=== PATIENT | female | born 1955 | race Caucasian/White ===

== ENCOUNTER → 2018-04-22 12:48 | Outpatient (CLI) | payer OTHER, SELFPAY ==
--- NOTE | 2018-04-22 | DI.MG.S_ITS ---
BILATERAL DIGITAL SCREENING MAMMOGRAM 3D/2D WITH CAD: 04/22/2018 Comparison is made to exams dated: 01/08/2017 mammogram, 01/03/2016 mammogram, 07/27/2014 mammogram, and 05/26/2013 mammogram - [facility]. There are scattered fibroglandular elements in both breasts. Current study was also evaluated with a Computer Aided Detection (CAD) system. No significant masses, calcifications, or other findings are seen in either breast. There has been no significant interval change. IMPRESSION: NEGATIVE There is no mammographic evidence of malignancy. A 1 year screening mammogram is recommended.(04/23/2019) This exam was interpreted at Station ID: [id number]. NOTE: For mammograms, a report in lay terms will be sent to the patient. Approximately 15% of breast malignancies will not be visualized mammographically. In the management of a palpable breast mass, a negative mammogram must not discourage biopsy of a clinically suspicious lesion. Electronically Signed By: Devika lockhart/jailene:04/24/2018 11:48:24 letter sent: Normal Exam ACR BI-RADS Category 1: Negative 3341F
== END ==
PROVIDERS: PCP Family Medicine Geriatric Medicine; Visit Provider Family Medicine Geriatric Medicine
DX: Z12.31 Encounter for screening mammogram for malignant neoplasm of breast (principal)
CPT/HCPCS: 77063; 77067

== ENCOUNTER → 2019-05-05 15:18 | Outpatient (CLI) | payer OTHER, SELFPAY ==
--- NOTE | 2019-05-05 | DI.MG.S_ITS ---
BILATERAL DIGITAL SCREENING MAMMOGRAM 3D/2D WITH CAD: 05/05/2019 CLINICAL: Routine screening. Comparison is made to exams dated: 04/22/2018 mammogram, 01/08/2017 mammogram, and 01/03/2016 mammogram - [facility]. There are scattered fibroglandular elements in both breasts. Current study was also evaluated with a Computer Aided Detection (CAD) system. No significant masses, calcifications, or other findings are seen in either breast. There has been no significant interval change. IMPRESSION: NEGATIVE There is no mammographic evidence of malignancy. A 1 year screening mammogram is recommended. This exam was interpreted at Station ID: [id number]. NOTE: For mammograms, a report in lay terms will be sent to the patient. Approximately 15% of breast malignancies will not be visualized mammographically. In the management of a palpable breast mass, a negative mammogram must not discourage biopsy of a clinically suspicious lesion. Electronically Signed By: Jeff humphrey/jailene:05/05/2019 16:23:32 letter sent: Normal Exam ACR BI-RADS Category 1: Negative 3341F
== END ==
PROVIDERS: PCP Family Medicine Geriatric Medicine; Visit Provider Family Medicine Geriatric Medicine
DX: Z12.31 Encounter for screening mammogram for malignant neoplasm of breast (principal)
CPT/HCPCS: 77063; 77067

== ENCOUNTER → 2020-07-06 08:22 | Outpatient (CLI) | payer BC, SELFPAY ==
--- NOTE | 2020-07-06 | DI.MG.S_ITS ---
BILATERAL DIGITAL SCREENING MAMMOGRAM 3D/2D WITH CAD: 07/06/2020 CLINICAL: Routine screening. Comparison is made to exams dated: 05/05/2019 mammogram, 04/22/2018 mammogram, and 01/08/2017 mammogram - [facility]. There are scattered fibroglandular elements in both breasts. Current study was also evaluated with a Computer Aided Detection (CAD) system. No significant masses, calcifications, or other findings are seen in either breast. There has been no significant interval change. IMPRESSION: NEGATIVE There is no mammographic evidence of malignancy. A 1 year screening mammogram is recommended. This exam was interpreted at Station ID: [id number]. NOTE: For mammograms, a report in lay terms will be sent to the patient. Approximately 15% of breast malignancies will not be visualized mammographically. In the management of a palpable breast mass, a negative mammogram must not discourage biopsy of a clinically suspicious lesion. Electronically Signed By: Devika lockhart/jailene:07/06/2020 09:37:13 letter sent: Normal Exam ACR BI-RADS Category 1: Negative 3341F
== END ==
PROVIDERS: PCP Family Medicine; Referring Provider Family Medicine; Visit Provider Family Medicine
DX: Z12.31 Encounter for screening mammogram for malignant neoplasm of breast (principal)
CPT/HCPCS: 77063; 77067

== ENCOUNTER 2020-08-17 08:11 | Day surgery (SDC) | payer BC, SELFPAY ==
[2020-08-17] VITALS (7 sets, daily range): BP systolic 108–126; BP diastolic 53–70; PULSE 69–76; RESP 14–18; TEMP 36.2–36.7; O2SAT 95–99; BMI 40.3
--- NOTE | 2020-08-17 | PATH_ITS ---
[facility] Accession Number: [id number] . 01 Material submitted: . colon - ASCENDING COLON POLYP . 02 Diagnosis: Ascending Colon, Polyp: Colonic mucosa with prominent benign lymphoid aggregate. Negative for serrated lesion, dysplasia or malignancy. MRV 08/22/2020 1002 Local . 02 Electronically signed: . Omar Ahumada MD, PhD, Pathologist NPI- [id number] . 01 Gross description: . The specimen is received in formalin, labeled ascending colon polyp and consists of a 0.5 x 0.4 x 0.3 cm martino fragment of soft tissue which is entirely submitted in cassette A1. ([id number]) /MRV 08/18/2020 1200 Local . 02 Pathologist provided ICD-10: K63.5 . 02 CPT . 631079 Performed at: 01 [facility] [address] [facility], [place], [place] [id number] MD Melvin Cerna MD Phone: [phone] Performed at: [facility] [address] [place], [place] [id number] MD Bailee Chappell MD Phone: [phone]
[2020-08-17] MEDS: LACTATED RINGERS 1,000 ML 200 ML IV (10:58)
--- NOTE | 2020-08-17 11:47 | PM.HP.1 ---
History of Present Illness History of Present Illness Date Patient Seen: 08/17/20 Time Patient Seen: 11:47 Chief complaint: SDC Narrative: The patient is woman who last had a colonoscopy 5 years ago. She is here for repeat colonoscopy. She had a polyp removed at her 1st colonoscopy. Patient History Medical History (Updated 08/17/20 @ 11:49 by Elier Umana MD) History of colon polyps Family & Social History Social History: household members spouse Tobacco & Substance use: Smoking Status Never smoker alcohol intake frequency a few times a month Substance Use Type does not use Meds Home Medications and Allergies Home Medications Medication Instructions Recorded Confirmed Type estradiol [Vivelle] 1 patch TRANSDERMAL 2XW 08/17/20 08/17/20 History Allergies Allergy/AdvReac Type Severity Reaction Status Date / Time codeine [CODEINE] Allergy Severe Hallucinati Verified 08/17/20 11:03 ng hydromorphone [HYDROMORPHONE] Allergy Severe Hallucinati Verified 08/17/20 11:03 ng lidocaine [LIDOCAINE] Allergy Severe Rash Verified 08/17/20 11:03 meperidine [MEPERIDINE] Allergy Severe Hallucinati Verified 08/17/20 11:03 ng morphine [MORPHINE] Allergy Severe Hallucinati Verified 08/17/20 11:03 ng oxycodone [OXYCODONE] Allergy Severe Hallucinati Verified 08/17/20 11:03 ng Penicillins [PENICILLINS] Allergy Severe Rash Verified 08/17/20 11:03 Review of Systems Review of Systems ROS: Yes All systems reviewed with the patient and are negative except as otherwise documented Exam Vital Signs (past 8 hours): - 08/17/20 10:42 Temperature 97.2 F L Pulse Rate 69 Respiratory Rate 16 Blood Pressure 124/70 Pulse Oximetry 97 Oxygen Delivery Method Room Air Narrative Exam Narrative: Pleasant cooperative patient no apparent distress. Lungs are clear to auscultation. No rales or rhonchi. Heart regular rate and rhythm no murmur gallop. Abdomen is soft nontender without mass. No obvious hernias. Patient is alert and oriented x3. Assessment & Plan Assessment & Plan narrative: The patient for a screening colonoscopy. I have discussed the procedure with them. Risks of bleeding, perforation which would necessitate major operation, failure to find remove all lesions, the potential tattoo were all discussed. All questions were answered. They wished to proceed.
--- NOTE | 2020-08-17 12:27 | PM.OP.ENDO ---
Operative Date/Time/Diagnoses Date of procedure: 08/17/20 Time of procedure: 12:27 Pre-op diagnosis: Screening exam. Last colonoscopy 5 years ago. Patient has a personal history of tubulovillous adenoma. Post-op diagnosis: same (One tiny polyp seen.) Procedure & Clinicians Study performed: Colonoscopy with cold biopsy Same procedure as scheduled: Yes Indications: Screening Surgeon: Elier Umana Procedure Notes SCOAP/Timeout: Performed Procedure in detail: The patient was placed in the left lateral decubitus position and underwent IV sedation directed by the surgeon consisting of fentanyl and Versed. Digital exam was unremarkable. The scope was inserted and advanced through the rectum into the sigmoid, descending, transverse, and ascending colon. No lesions were seen on the way in.. The cecum was reached identified by the ileocecal valve and the appendiceal opening. The ileocecal valve was successfully cannulated. The terminal ileum was normal in appearance. The scope was gradually brought out. One tiny Polyp was found at the ascending colon and was biopsied and removed. No other lesions were seen. The scope ultimately was retroflexed in the rectum. The appearance was normal. The scope was removed and the patient tolerated the procedure well. The prep was excellent. Scope withdrawal time: 6.5 minutes(8.5 total) Sedation minutes: 0 (Deep sedation using propofol provided by an anesthesiologist was used due to the patient's reactions to nearly all medications that could be used to give moderate sedation.) Findings: polyp (One very small polyp in the ascending colon near the flexure) Specimen(s): other (Polyp) Complications: none Post-procedure Recommendations: Colonscopy in 5 years Follow up: as needed Disposition: PACU
== END 2020-08-17 13:15 | disposition home or self-care (01) ==
PROVIDERS: PCP Family Medicine; Referring Provider Specialist; Visit Provider Specialist
PROC: 0DJD8ZZ Inspection of Lower Intestinal Tract, Via Natural or Artificial Opening Endoscopic (ICD-10-PCS; CPT 45378; principal; 2020-08-17 09:15)
DX: Z12.11 Encounter for screening for malignant neoplasm of colon (principal); Z86.010 Personal history of colon polyps; E66.9 Obesity, unspecified; K63.5 Polyp of colon
CPT/HCPCS: 45380; J2250

== ENCOUNTER → 2021-10-05 15:01 | Outpatient (CLI) | payer OTHER, SELFPAY ==
--- NOTE | 2021-10-05 15:04 | DI.MG.S_ITS ---
BILATERAL DIGITAL SCREENING MAMMOGRAM 3D/2D WITH CAD: 10/05/2021 CLINICAL: Routine screening. Comparison is made to exams dated: 07/06/2020 mammogram, 05/05/2019 mammogram, and 04/22/2018 mammogram - [facility]. There are scattered fibroglandular elements in both breasts. Current study was also evaluated with a Computer Aided Detection (CAD) system. No significant masses, calcifications, or other findings are seen in either breast. There has been no significant interval change. IMPRESSION: NEGATIVE There is no mammographic evidence of malignancy. A 1 year screening mammogram is recommended. This exam was interpreted at Station ID: [id number]. NOTE: For mammograms, a report in lay terms will be sent to the patient. Approximately 15% of breast malignancies will not be visualized mammographically. In the management of a palpable breast mass, a negative mammogram must not discourage biopsy of a clinically suspicious lesion. Electronically Signed By: Delmer Giraldo acr/jailene:10/05/2021 15:36:57 letter sent: Normal Exam ACR BI-RADS Category 1: Negative 3341F
== END ==
PROVIDERS: PCP Family Medicine; Referring Provider Family Medicine; Visit Provider Family Medicine
DX: Z12.31 Encounter for screening mammogram for malignant neoplasm of breast (principal)
CPT/HCPCS: 77063; 77067

== ENCOUNTER 2022-03-12 14:17 | Day surgery (SDC) | payer OTHER, SELFPAY ==
[2022-03-05 12:44] VITALS: BMI 41.3
--- NOTE | 2022-03-12 | PATH_ITS ---
[facility] Accession Number: [id number] . 01 Material submitted: . PART A: body - LEFT AC FOSSA MASS PART B: back - LIPOMA BACK . 01 Clinical history: . LEFT ARM/LOWER BACK EXCISIONAL BX'S . 01 Diagnosis: A. Left AC Fossa, Excisional Biopsy: Mature fibroadipose tissue, consistent with lipoma. . B. Back, Excisional Biopsy: Mature fibroadipose tissue, consistent with lipoma. MRV 03/14/2022 0849 Local . 01 Electronically signed: . Grady Escobedo MD, Dermatopathologist NPI- [id number] . 01 Gross description: . A. Received in formalin labeled with the patient's name and left AC fossa mass consists of a fragment of yellow lobulated soft tissue measuring 4.7 x 3.3 x 1.4 cm. The external surface is inked blue. Serial sectioning reveals yellow homogeneous unremarkable cut surface. [employer]iple [employer] sections are submitted in cassettes A1-A2. B. Received in formalin labeled with the patient's name and lipoma back consists of a yellow lobulated soft tissue fragment measuring 2.2 x 1.7 x 0.8 cm. The external surface is inked black. Serial sectioning reveal a yellow homogenous unremarkable cut surface. The specimen is submitted entirely in cassettes B1-B2. ([id number]) /MRV 03/13/2022 1051 Local . 01 Pathologist provided ICD-10: D17.9 . 01 CPT . 026447, 215763 Performed at: 01 [facility] [address] [place] [address], [place], [place] [id number] MD Melvin Cerna MD Phone: [phone]
[2022-03-12 14:52] VITALS: BP 121/72; PULSE 89; RESP 17; TEMP 36.4; O2SAT 97; BMI 41.3
--- NOTE | 2022-03-12 15:18 | PM.HP.1 ---
History of Present Illness History of Present Illness Date Patient Seen: 03/12/22 Time Patient Seen: 15:18 Chief complaint: LEFT ARM/LOWER BACK EXCISIONAL BX'S Narrative: Diann is here for her excision biopsy of her left AC fossa mass and her back mass. See the office note from December for details. Patient History Medical History Celiac disease History of colon polyps Surgical History H/O: hysterectomy (~1992) Family & Social History Social History: household members spouse Tobacco & Substance use: Smoking Status Never smoker alcohol intake never alcohol intake frequency a few times a month Substance Use Type does not use Meds Home Medications and Allergies Home Medications Medication Instructions Recorded Confirmed Type estradiol 0.05 mg/24 hr semiweekly 1 patch transdermal 2XW 08/17/20 03/12/22 History transdermal patch ascorbate calcium (vitamin C) 500 2,000 mg PO DAILY 01/02/22 03/12/22 History mg tablet cholecalciferol (vitamin D3) 25 4,000 unit PO BID 01/02/22 03/12/22 History mcg (1,000 unit) capsule cyanocobalamin (vitamin B-12) 2,500 mcg PO DAILY 01/02/22 03/12/22 History 2,500 mcg tablet multivitamin (Daily Multi-Vitamin 2 tab PO DAILY 01/02/22 03/12/22 History tablet) alpha lipoic acid 600 mg tablet 600 mg PO BID 03/05/22 03/12/22 History Allergies Allergy/AdvReac Type Severity Reaction Status Date / Time codeine [CODEINE] Allergy Severe Hallucinating, Verified 03/12/22 12:49 severe n/v hydromorphone [HYDROMORPHONE] Allergy Severe Hallucinating. Verified 03/12/22 12:49 severe n/v lidocaine [LIDOCAINE] Allergy Severe Rash, Verified 03/12/22 12:49 swelling at site meperidine [MEPERIDINE] Allergy Severe Hallucinating, Verified 03/12/22 12:49 N/V morphine [MORPHINE] Allergy Severe Hallucinating, Verified 03/12/22 12:49 N/V oxycodone [OXYCODONE] Allergy Severe Hallucinating, Verified 03/12/22 12:49 N/V Penicillins [PENICILLINS] Allergy Severe Rash, Verified 03/12/22 12:49 throat swelling latex Allergy Intermediate Verified 03/12/22 15:17 Exam Vital Signs (past 8 hours): - 03/12/22 14:52 Temperature 97.5 F L Pulse Rate 89 Respiratory Rate 17 Blood Pressure 121/72 Pulse Oximetry 97 Oxygen Delivery Method Room Air Oxygen Delivery Method Room Air Narrative Exam Narrative: Left AC fossa mass and low back mass Assessment & Plan Assessment and plan (1) Lipoma of left upper extremity: Status: Acute (2) Mass on back: Status: Acute Plan We will plan for excisional biopsy of the left AC fossa mass and back mass. She would like to have local anesthetic only and she would like to have anything other than lidocaine so we will use Marcaine with epinephrine. Time Spent With Patient Critical Care time: I spent a total of [] minutes of critical care time on this patient's care today; this time is exclusive of procedural time.
--- NOTE | 2022-03-12 16:25 | SUR.OPER ---
Prone on padded OR bed, head in foam head support, gel chest rolls, gel pad under knees, pillow under lower legs, toes free of pressure, arms secured on padded arm boards at <90 degrees abduction. Safety belt at thigh.
[2022-03-12] MEDS: BUPIVACAINE 0.5% W/ EPI (PF) 30 ML VIAL INJ (16:29)
--- NOTE | 2022-03-12 16:36 | PM.OP.1 ---
Operative Date/Time/Diagnoses Date of procedure: 03/12/22 Time of procedure: 16:37 Pre-op diagnosis: Left arm mass and lower back mass Post-op diagnosis: same Procedure & Clinicians Procedure: Excisional biopsy of left AC fossa mass and lower back mass Same procedure as scheduled: Yes Surgeon: Kendrick Becker Anesthesia Type: Local Operative Notes Procedure in detail: The patient was brought to the operating room and placed on the table in the supine position with the left arm on an arm board. The left arm was prepped and draped in the usual fashion and a time-out was performed. About 5 mL of Marcaine was injected over the mass and a 5 cm transverse incision was made over the mass. There was a distinct fatty mass in the AC fossa which became less distinct as it moved medially. There was a one subcutaneous vein that was dissected off the mass and protected. The mass was about 5 cm x 4 cm. The wound was then closed in layers using multiple interrupted 3-0 Vicryl dermal sutures followed by a running 4-0 Monocryl subcuticular stitch. The patient was able to move all of her fingers throughout the case. Next the patient was positioned in the prone position and the lower back was prepped and draped in the usual fashion. Another 5 mL of Marcaine was injected over the mass. A 4 cm axial incision was made over the mass. There was a rather discrete fatty mass about the size of a raspberry that was easily removed. Few bleeders were cauterized. The wound was then closed in layers using multiple interrupted 3-0 Vicryl dermal sutures followed by running 4 Monocryl subcuticular closure. EBL: 10 mL Specimens: Left AC fossa fatty mass and lower back fatty mass. Post-operative Condition: stable Disposition: PACU
[2022-03-12 16:40] VITALS: BP 153/72; PULSE 76; RESP 16; O2SAT 100
[2022-03-12 16:43] VITALS: BP 134/65; PULSE 80; RESP 28; TEMP 36.7; O2SAT 98
== END 2022-03-12 17:02 | disposition home or self-care (01) ==
PROVIDERS: PCP Family Medicine; Referring Provider Surgery; Visit Provider Surgery
PROC: (CPT 24071; principal; 2022-03-12 15:45)
DX: R22.32 Localized swelling, mass and lump, left upper limb (principal); R22.2 Localized swelling, mass and lump, trunk
CPT/HCPCS: 24071; 21931

== ENCOUNTER → 2022-12-30 13:07 | Outpatient (CLI) | payer OTHER, SELFPAY ==
--- NOTE | 2022-12-30 | DI.MG.S_ITS ---
BILATERAL DIGITAL SCREENING MAMMOGRAM 3D/2D WITH CAD: 12/30/2022 CLINICAL: Routine screening. Comparison is made to exams dated: 10/05/2021 mammogram, 07/06/2020 mammogram, and 05/05/2019 mammogram - [facility]. There are scattered areas of fibroglandular density in both breasts (category b / 25%-50% glandular tissue). Current study was also evaluated with a Computer Aided Detection (CAD) system. No significant masses, calcifications, or other findings are seen in either breast. There has been no significant interval change. IMPRESSION: NEGATIVE There is no mammographic evidence of malignancy. A 1 year screening mammogram is recommended. Based on the Tyrer Cuzick model (a risk assessment model) the patient's lifetime risk is 6.7% and her 10 year risk is 3.7%. According to the ACR, ACS, and NCCN guidelines, an annual breast MRI exam along with mammogram is recommended if the patient's lifetime risk is 20% or greater. This exam was interpreted at Station ID: [id number]. NOTE: For mammograms, a report in lay terms will be sent to the patient. Approximately 15% of breast malignancies will not be visualized mammographically. In the management of a palpable breast mass, a negative mammogram must not discourage biopsy of a clinically suspicious lesion. Electronically Signed By: Amilcar wright/jailene:12/30/2022 13:44:58 letter sent: Normal Exam ACR BI-RADS Category 1: Negative 3341F
== END ==
PROVIDERS: PCP Family Medicine; Referring Provider Family Medicine; Visit Provider Family Medicine
DX: Z12.31 Encounter for screening mammogram for malignant neoplasm of breast (principal)
CPT/HCPCS: 77063; 77067

== ENCOUNTER → 2024-10-01 08:24 | Outpatient (CLI) | payer OTHER, SELFPAY ==
--- NOTE | 2024-10-01 08:26 | DI.MG.S_ITS ---
MM screening mammo BI: 10/01/2024. BI-RADS: 1 CLINICAL: 69-year old female for bilateral screening mammogram. Tyrer-Cuzick lifetime risk of 2.8%. No personal or first-degree family history of breast cancer. History of ovarian cancer in one first-degree relative. PRIOR EXAMS 12/30/2022, 10/05/2021, 07/06/2020, 05/05/2019, 04/22/2018, 01/08/2017, 01/03/2016. MAMMOGRAPHY TECHNIQUE: 2D and 3D (tomosynthesis) digital mammographic views obtained, with additional images as needed for full coverage. Current study was also evaluated with a Computer Aided Detection (CAD) system. DENSITY B. There are scattered areas of fibroglandular density. MAMMOGRAPHY FINDINGS Bilateral: No suspicious mass, asymmetry, microcalcification, or other abnormality seen. IMPRESSION: * No evidence of malignancy. RECOMMENDATIONS Bilateral * Annual screening mammography. OVERALL ASSESSMENT CATEGORY BI-RADS-1: Negative. The [employer] recommends annual screening mammography beginning at age 40 for women with average risk of breast cancer. ELECTRONICALLY SIGNED: Josef Berger M.D. on 10/01/2024 at 10:10:25 AM PT Interpreting Station ID: [id number]
== END ==
PROVIDERS: PCP Family Medicine; Referring Provider Family Medicine; Visit Provider Family Medicine
DX: Z12.31 Encounter for screening mammogram for malignant neoplasm of breast (principal); Z80.41 Family history of malignant neoplasm of ovary
CPT/HCPCS: 77063; 77067